=== PATIENT | female | born 1990 | race American Indian/Alaskan Native ===

== ENCOUNTER 2016-07-14 13:39 | Emergency (ER) | payer MEDICAID ==
[2016-07-14 15:13] LABS: Basophils % (Auto) 0.2 % (0.0-1.8); Eosinophils % (Auto) 0.2 % (0.0-4.3); Hematocrit 39.9 % (30.3-42.9); Hemoglobin 13.6 gm/dl (10.1-14.3); Mean Corpuscular HGB Conc 34 % (30-34); Mean Corpuscular Hemoglobin 31 pg (28-32); Mean Corpuscular Volume 91 fl (79-97); Platelet Count 211 K/mm3 (140-440); Red Blood Count 4.39 M/mm3 (3.65-5.03); Red Cell Distribution Width 12.2 % (13.2-15.2); White Blood Count 12.5 K/mm3 (4.5-11.0)
[2016-07-14 15:32] LABS: Anion Gap 20 mmol/L; BUN/Creatinine Ratio 14.28; Blood Urea Nitrogen 10 mg/dL (7-17); Carbon Dioxide 23 mmol/L (22-30); Chloride 96.9 mmol/L (98-107); Glucose 84 mg/dL (65-100); Potassium 3.7 mmol/L (3.6-5.0); Sodium 136 mmol/L (137-145)
[2016-07-14 15:50] LABS: Bilirubin,Urine NEG (Negative); Blood,Urine MOD (Negative); Ketones,Urine 80 mg/dL (Negative); Leukocyte Esterase,Urine NEG (Negative); Mucus,Urine 3+ /HPF; Nitrite,Urine NEG (Negative); WBC,Urine < 1.0 /HPF (0.0-6.0)
[2016-07-14] MEDS ORDERED: TORADOL IV ONE (16:56)
[2016-07-14] MEDS ORDERED: NORCO PO ONE (16:56)
[2016-07-14] MEDS ORDERED: NACL 0.9% 1000 ML 1,000 ML IV ONE (16:56)
--- NOTE | 2016-07-14 17:03 | Emergency Department Report ---
ED ENT HPI - General Chief complaint: Sore Throat Stated complaint: SORE THROAT, BACK PAIN Time Seen by Provider: 07/14/16 16:47 Source: patient Mode of arrival: Ambulatory Limitations: No Limitations - History of Present Illness Initial comments: PT states she thought she was coming down with a cold on Thursday. PT states her throat was a little painful and she had body aches. PT states her throat pain has increased and she has not eaten x 2 days due to the pain. PT states she was sent home from work. PT states she has not taken anything for her fever. MD complaint: sore throat Onset/Timin -: Gradual, days(s) Location: throat Severity: severe Severity scale (0 -10): 10 Quality: sharp, constant Consistency: constant Improves with: none Worsens with: swallowing, eating Associated Symptoms: fever, pain with swallowing, sore throat. denies: discharge from ear, rhinorrhea - Related Data Previous Rx's Medication Instructions Recorded Last Taken Type Acetaminophen/Codeine [Tylenol #3] 1 tab PO Q6H PRN #8 tab 07/14/16 Unknown Rx Amoxicillin/K Clav Tab [Augmentin 1 tab PO Q12HR #20 tab 07/14/16 Unknown Rx 875 mg] Ibuprofen [Motrin] 600 mg PO Q8H PRN #15 tablet 07/14/16 Unknown Rx methylPREDNISolone [Medrol] 4 mg PO DAILY #1 tab.ds.pk 07/14/16 Unknown Rx Allergies Allergy/AdvReac Type Severity Reaction Status Date / Time No Known Allergies Allergy Verified 05/25/14 18:52 ED Dental HPI - General Chief complaint: Sore Throat Stated complaint: SORE THROAT, BACK PAIN Time Seen by Provider: 07/14/16 16:47 Source: patient Mode of arrival: Ambulatory Limitations: No Limitations - Related Data Previous Rx's Medication Instructions Recorded Last Taken Type Acetaminophen/Codeine [Tylenol #3] 1 tab PO Q6H PRN #8 tab 07/14/16 Unknown Rx Amoxicillin/K Clav Tab [Augmentin 1 tab PO Q12HR #20 tab 07/14/16 Unknown Rx 875 mg] Ibuprofen [Motrin] 600 mg PO Q8H PRN #15 tablet 07/14/16 Unknown Rx methylPREDNISolone [Medrol] 4 mg PO DAILY #1 tab.ds.pk 07/14/16 Unknown Rx Allergies Allergy/AdvReac Type Severity Reaction Status Date / Time No Known Allergies Allergy Verified 05/25/14 18:52 ED Review of Systems ROS: Stated complaint: SORE THROAT, BACK PAIN Other details as noted in HPI Comment: All other systems reviewed and negative Constitutional: chills, fever, malaise, weakness ENT: throat pain. denies: ear pain, congestion Respiratory: denies: cough Gastrointestinal: abdominal pain (pt states her stomach is starting to hurt today from not eating. ). denies: nausea, vomiting Musculoskeletal: back pain, myalgia Neurological: weakness (entire body feels weak) ED Past Medical Hx - Past Medical History Hx Hypertension: No Hx CVA: No Hx Heart Attack/AMI: No Hx Congestive Heart Failure: No Hx Diabetes: No Hx Deep Vein Thrombosis: No Hx Pulmonary Embolism: No Hx GERD: No Hx Liver Disease: No Hx Renal Disease: No Hx Sickle Cell Disease: No Hx Arthritis: No Hx Headaches / Migraines: No Hx Seizures: No Hx Kidney Stones: No Hx Psychiatric Treatment: No Hx Asthma: No Hx COPD: No Hx Tuberculosis: No Hx Dementia: No Hx HIV: No - Surgical History Hx Coronary Stent: No Hx Open Heart Surgery: No Hx Pacemaker: No Hx Internal Defibrillator: No Hx Cholecystectomy: No Hx Appendectomy: No Hx Breast Surgery: No - Social History Smoking Status: Former Smoker Substance Use Type: Alcohol, Marijuana, Non Opiate Pain, Other - Medications Home Medications: Home Medications Medication Instructions Recorded Confirmed Last Taken Type Acetaminophen/Codeine [Tylenol #3] 1 tab PO Q6H PRN #8 tab 07/14/16 Unknown Rx Amoxicillin/K Clav Tab [Augmentin 1 tab PO Q12HR #20 tab 07/14/16 Unknown Rx 875 mg] Ibuprofen [Motrin] 600 mg PO Q8H PRN #15 tablet 07/14/16 Unknown Rx methylPREDNISolone [Medrol] 4 mg PO DAILY #1 tab.ds.pk 07/14/16 Unknown Rx ED Physical Exam - General Limitations: No Limitations General appearance: alert, in no apparent distress, other (non toxic ) - Head Head exam: Present: atraumatic, normocephalic, normal inspection - Eye Eye exam: Present: normal appearance, EOMI. Absent: conjunctival injection - ENT ENT exam: Present: mucous membranes moist, TM's normal bilaterally, normal external ear exam - Expanded ENT Exam Expanded Mouth exam: Absent: drooling, trismus, muffled voice, tongue normal (multiple piercings ) Throat exam: Positive: tonsillar erythema, tonsillomegaly, tonsillar exudate. Negative: R peritonsillar mass, L peritonsillar mass - Neck Neck exam: Present: normal inspection, tenderness, full ROM, lymphadenopathy - Respiratory Respiratory exam: Present: normal lung sounds bilaterally. Absent: respiratory distress, chest wall tenderness - Cardiovascular Cardiovascular Exam: Present: normal rhythm, tachycardia - GI/Abdominal GI/Abdominal exam: Present: soft. Absent: tenderness - Extremities Exam Extremities exam: Present: normal inspection, full ROM. Absent: tenderness - Back Exam Back exam: Present: normal inspection, full ROM, other (pt c/o generalized ache ). Absent: tenderness, CVA tenderness (R), CVA tenderness (L) - Neurological Exam Neurological exam: Present: alert, oriented X3 - Psychiatric Psychiatric exam: Present: normal affect, normal mood - Skin Skin exam: Present: warm, dry, intact, normal color ED Course Vital Signs 07/14/16 07/14/16 07/14/16 14:46 17:02 19:47 Temperature 100.3 F H 100.2 F H 99.3 F Pulse Rate 112 H 75 Respiratory 20 18 Rate Blood Pressure 124/78 Blood Pressure 104/67 [Left] O2 Sat by Pulse 94 99 Oximetry 07/14/16 19:48 Temperature Pulse Rate Respiratory 18 Rate Blood Pressure Blood Pressure [Left] O2 Sat by Pulse 99 Oximetry - Reevaluation(s) Reevaluation #1: 07/14/16 17:05 PT aware of available lab results. Reevaluation #2: 07/14/16 21:51 Called lab for rapid [place] test results. I was informed that lab was out of the cassettes and the test would be sent out. PT aware of available lab results. PT tolerating po fluids and food. PT states she is feeling better. PT aware of plan of care, will treat pt empirically for strep pharyngitis. - Pulse Oximetry Interpretation Digit-Finger Initial Pulse Oximetry Readin Actions Taken: none ED Medical Decision Making - Lab Data Result diagrams: 07/14/16 14:57 07/14/16 14:57 Labs 07/14/16 07/14/16 07/14/16 14:57 14:57 15:30 WBC 12.5 H RBC 4.39 Hgb 13.6 Hct 39.9 MCV 91 MCH 31 MCHC 34 RDW 12.2 L Plt Count 211 Lymph % (Auto) 8.8 L [place] % (Auto) 6.1 Eos % (Auto) 0.2 Baso % (Auto) 0.2 Lymph # 1.1 L [place] # 0.8 Eos # 0.0 Baso # 0.0 Seg Neutrophils % 84.7 H Seg Neutrophils # 10.6 H Sodium 136 L Potassium 3.7 Chloride 96.9 L Carbon Dioxide 23 Anion Gap 20 BUN 10 Creatinine 0.7 Estimated GFR > 60 BUN/Creatinine Ratio 14.28 Glucose 84 Calcium 9.0 Urine Color [place] Urine Turbidity Clear Urine pH 6.0 Ur Specific [place] 1.031 H Urine Protein 30 mg/dl Urine Glucose (UA) Neg Urine Ketones 80 Urine Blood Mod Urine Nitrite Neg Ur Reducing Substances Not Reportable Urine Bilirubin Neg Urine Ictotest Not Reportable Urine Urobilinogen 4.0 Ur Leukocyte Esterase Neg Urine WBC (Auto) < 1.0 Urine RBC (Auto) 11.0 U Epithel Cells (Auto) 5.0 Urine Mucus 3+ Urine HCG, Qual Negative - Differential Diagnosis strep pharyngitis, mono, dehydration Critical Care Time: No Critical care attestation.: If time is entered above; I have spent that time in minutes in the direct care of this critically ill patient, excluding procedure time. ED Disposition Clinical Impression: Exudative pharyngitis, Dehydration Disposition: DISCHARGED TO HOME OR SELFCARE Is pt being admited?: No Does the pt Need Aspirin: No Condition: Stable Instructions: Dehydration (ED), Mononucleosis (ED), Strep Throat (ED) Additional Instructions: Increase fluids throat culture pending. follow up with PCP in 3-5 days, your PCP can request a copy of your throat culture and mono test Return to ED if worsening or concerns Prescriptions: Acetaminophen/Codeine [Tylenol #3] 1 tab PO Q6H PRN #8 tab PRN Reason: Pain , Severe (7-10) Amoxicillin/K Clav Tab [Augmentin 875 mg] 1 tab PO Q12HR #20 tab Ibuprofen [Motrin] 600 mg PO Q8H PRN #15 tablet PRN Reason: Pain methylPREDNISolone [Medrol] 4 mg PO DAILY #1 tab.ds.pk Referrals: PRIMARY CARE, [Primary Care Provider] - 3-5 Days Forms: Work/School Release Form(ED) Time of Disposition: 22:01
[2016-07-14 19:48] VITALS: BP 104/67
[2016-07-14] MEDS ORDERED: AUGMENTIN 875 MG PO ONE (22:02)
== END 2016-07-14 22:13 | disposition home or self-care (01) ==
LOC: ED 13:39
DX: J02.9 Acute pharyngitis, unspecified (principal); E86.0 Dehydration; F12.90 Cannabis use, unspecified, uncomplicated; Z87.891 Personal history of nicotine dependence
CPT/HCPCS: 36415; 80048; 81001; 81025; 85025; 86308; 87116; 87430; 96361; 96374; 99283; J1885; J7030

== ENCOUNTER 2016-11-15 10:15 | Emergency (ER) | payer SELFPAY ==
[2016-11-15 11:51] LABS: Hematocrit 41.7 % (30.3-42.9); Hemoglobin 14.1 gm/dl (10.1-14.3); Mean Corpuscular HGB Conc 34 % (30-34); Mean Corpuscular Hemoglobin 31 pg (28-32); Mean Corpuscular Volume 92 fl (79-97); Platelet Count 241 K/mm3 (140-440); Red Blood Count 4.51 M/mm3 (3.65-5.03); Red Cell Distribution Width 12.8 % (13.2-15.2); White Blood Count 4.4 K/mm3 (4.5-11.0)
[2016-11-15 13:19] LABS: Alanine Aminotransferase 12 units/L (7-56); Albumin 4.2 g/dL (3.9-5); Albumin/Globulin Ratio 1.4 %; Alkaline Phosphatase 53 units/L (35-129); Anion Gap 20 mmol/L; Blood Urea Nitrogen 8 mg/dL (7-17); Calcium 9.3 mg/dL (8.4-10.2); Carbon Dioxide 22 mmol/L (22-30); Chloride 101.9 mmol/L (98-107); Glucose 80 mg/dL (65-100); Potassium 4.7 mmol/L (3.6-5.0); Sodium 139 mmol/L (137-145); Total Protein 7.3 g/dL (6.3-8.2)
--- NOTE | 2016-11-15 14:52 | Ultrasound Report ---
FINAL REPORT EXAM: US OB TRANSVAGINAL HISTORY: bleeding TECHNIQUE: Pelvic obstetrical ultrasound. Transvaginal study. This is read in conjunction with transabdominal images performed concurrently PRIORS: 11/15/2016 FINDINGS: There is no intrauterine gestational sac seen. There is no uterine mass is seen. The uterus measures 8.2 x 4.4 x 6.1 cm. The endometrium measures 9.4 mm thickness. Endometrial contents are slightly heterogeneous. The right ovary measures 2.4 x 1.4 x 3.2 cm. The left ovary measures 2.8 x 1.5 x 2.1 cm. There are no abnormal adnexal masses seen. There is blood flow within both ovaries. There is no free fluid in the cul-de-sac. IMPRESSION: Mildly heterogeneous endometrium measuring 9.4 mm thickness. No intrauterine gestational sac seen. There is no adnexal mass or free fluid. Most likely findings reflect spontaneous . Very early nonvisualized IUP and ectopic are possible but considered less likely. Correlate clinically.
--- NOTE | 2016-11-15 14:54 | Ultrasound Report ---
FINAL REPORT EXAM: US OB \T\lt; = 14 WEEKS FETUS HISTORY: bleeding TECHNIQUE: Pelvic obstetrical ultrasound. Transabdominal study. This is read in conjunction with transvaginal images performed concurrently PRIORS: 11/15/2016 FINDINGS: There is no intrauterine gestational sac seen. There is no uterine mass is seen. The uterus measures 8.2 x 4.4 x 6.1 cm. The endometrium measures 9.4 mm thickness. Endometrial contents are slightly heterogeneous. The right ovary measures 2.4 x 1.4 x 3.2 cm. The left ovary measures 2.8 x 1.5 x 2.1 cm. There are no abnormal adnexal masses seen. There is blood flow within both ovaries. There is no free fluid in the cul-de-sac. IMPRESSION: Mildly heterogeneous endometrium measuring 9.4 mm thickness. No intrauterine gestational sac seen. There is no adnexal mass or free fluid. Most likely findings reflect spontaneous . Very early nonvisualized IUP and ectopic are possible but considered less likely. Correlate clinically.
--- NOTE | 2016-11-15 20:08 | Emergency Department Report ---
HPI - General Chief Complaint: Abdominal Pain Time Seen by Provider: 11/15/16 17:27 - HPI HPI: This is a 26-year-old [place] female who presents to the emergency department with complaint of some lower back pain and vaginal bleeding since last night while . The patient had a positive home test recently and her last menstrual cycle was October 09. With this she would be with one previous . She has not seen blood cycle [facility] for this current but that is who she usually follows with. She denies any fever, nausea, vomiting, dysuria, vaginal discharge. She has not taken anything for symptoms prior to presentation. She denies any other past medical history. No recent travel or sick contacts at home. ED Past Medical Hx - Past Medical History Hx Hypertension: No Hx CVA: No Hx Heart Attack/AMI: No Hx Congestive Heart Failure: No Hx Diabetes: No Hx Deep Vein Thrombosis: No Hx Pulmonary Embolism: No Hx GERD: No Hx Liver Disease: No Hx Renal Disease: No Hx Sickle Cell Disease: No Hx Arthritis: No Hx Headaches / Migraines: No Hx Seizures: No Hx Kidney Stones: No Hx Psychiatric Treatment: No Hx Asthma: No Hx COPD: No Hx Tuberculosis: No Hx Dementia: No Hx HIV: No - Surgical History Hx Coronary Stent: No Hx Open Heart Surgery: No Hx Pacemaker: No Hx Internal Defibrillator: No Hx Cholecystectomy: No Hx Appendectomy: No Hx Breast Surgery: No - Social History Smoking Status: Former Smoker Substance Use Type: None - Medications Home Medications: Home Medications Medication Instructions Recorded Confirmed Last Taken Type Acetaminophen/Codeine [Tylenol #3] 1 tab PO Q6H PRN #8 tab 07/14/16 Unknown Rx Amoxicillin/K Clav Tab [Augmentin 1 tab PO Q12HR #20 tab 07/14/16 Unknown Rx 875 mg] Ibuprofen [Motrin] 600 mg PO Q8H PRN #15 tablet 07/14/16 Unknown Rx methylPREDNISolone [Medrol] 4 mg PO DAILY #1 tab.ds.pk 07/14/16 Unknown Rx Vit-Fe Fumar-FA [ 1 tab PO QDAY #30 tablet 11/15/16 Unknown Rx Vitamin] ED Review of Systems ROS: Stated complaint: 6WK /BLEEDING/ Other details as noted in HPI Comment: All other systems reviewed and negative Constitutional: denies: chills, fever Eyes: denies: eye pain, eye discharge, vision change ENT: denies: ear pain, throat pain Respiratory: denies: cough, shortness of breath, wheezing Cardiovascular: denies: chest pain, palpitations Gastrointestinal: abdominal pain. denies: nausea, vomiting Genitourinary: other (vaginal bleeding). denies: dysuria, discharge Musculoskeletal: denies: back pain, joint swelling, arthralgia Skin: denies: rash, lesions Neurological: denies: headache, weakness, paresthesias Physical Exam - Physical Exam Vital Signs: Vital Signs 11/15/16 11/15/16 10:47 19:30 Temperature 98.6 F 98.3 F Pulse Rate 93 H 80 Respiratory 16 18 Rate Blood Pressure 122/84 123/74 O2 Sat by Pulse 97 100 Oximetry Physical Exam: GENERAL: The patient is well-developed well-nourished. HENT: Normocephalic. Atraumatic. Patient has moist mucous membranes. EYES: Extraocular motions are intact. Pupils equal reactive to light bilaterally. NECK: Supple. Trachea is midline. CHEST/LUNGS: Clear to auscultation. There is no respiratory distress noted. HEART/CARDIOVASCULAR: Regular. There is no tachycardia. There is no gallop rub or murmur. ABDOMEN: Abdomen is soft, nontender. No guarding or rebound tenderness. No palpable gravid uterus. Patient has normal bowel sounds. There is no abdominal distention. SKIN: Skin is warm and dry. NEURO: The patient is awake, alert, and oriented. The patient is cooperative. The patient has no focal neurologic deficits. The patient has normal speech and gait. MUSCULOSKELETAL: There is no tenderness or deformity. There is no limitation range of motion. There is no evidence of acute injury. ED Course Vital Signs 11/15/16 11/15/16 10:47 19:30 Temperature 98.6 F 98.3 F Pulse Rate 93 H 80 Respiratory 16 18 Rate Blood Pressure 122/84 123/74 O2 Sat by Pulse 97 100 Oximetry ED Medical Decision Making - Lab Data Result diagrams: 11/15/16 11:18 11/15/16 12:17 - Radiology Data Radiology results: report reviewed EXAM: US OB TRANSVAGINAL HISTORY: bleeding TECHNIQUE: Pelvic obstetrical ultrasound. Transvaginal study. This is read in conjunction with transabdominal images performed concurrently PRIORS: 11/15/2016 FINDINGS: There is no intrauterine gestational sac seen. There is no uterine mass is seen. The uterus measures 8.2 x 4.4 x 6.1 cm. The endometrium measures 9.4 mm thickness. Endometrial contents are slightly heterogeneous. The right ovary measures 2.4 x 1.4 x 3.2 cm. The left ovary measures 2.8 x 1.5 x 2.1 cm. There are no abnormal adnexal masses seen. There is blood flow within both ovaries. There is no free fluid in the cul-de-sac. IMPRESSION: Mildly heterogeneous endometrium measuring 9.4 mm thickness. No intrauterine gestational sac seen. There is no adnexal mass or free fluid. Most likely findings reflect spontaneous . Very early nonvisualized IUP and ectopic are possible but considered less likely. Correlate clinically. Transcribed By: LEÓN Dictated By: MARGIE PAULSON MD Electronically Authenticated By: MARGIE PAULSON MD Signed Date/Time: 11/15/16 1051 - Medical Decision Making This is a 26-year-old female presents to the emergency department with some lower back pain and vaginal bleeding while . Her beta hCG is about 155. An ultrasound was done anyways and it shows a thickened endometrium but no obvious signs of intrauterine or any signs of ectopic . It is most likely a spontaneous miscarriage but early and/or ectopic cannot be ruled out 100%. The rest the patient's labs are unremarkable. The patient did not want to wait any further to have a urinalysis done so it is unknown whether her low back pain or any of her symptoms could be related to a UTI and the patient understands that without checking this that I cannot place her on antibiotics and a UTI with an is something that needs treatment. I discussed with the patient great detail about the diagnosis of threatened miscarriage and the plan for follow-up in 3-5 days either with her OB /[facility] or back in the emergency department for a repeat hormone level and possibly ultrasound. She understands that if the hormone level is increasing that there is still possibly a chance for this to be a early or possibly an early ectopic. She also appears to understand that if the hormone level is decreasing at that time that it will confirm that this is in fact a spontaneous miscarriage. However since we are not 100% definitive, she will be treated with vitamins and has been encouraged to take only Tylenol for discomfort until follow-up. She will return sooner with any worsening of vaginal bleeding, abdominal pain, development of fever or any acute distress. - Differential Diagnosis , threatened miscarriage, spontaneous miscarriage, ectopic, UTI Critical Care Time: No Critical care attestation.: If time is entered above; I have spent that time in minutes in the direct care of this critically ill patient, excluding procedure time. ED Disposition Clinical Impression: Threatened miscarriage, Vaginal bleeding Qualifiers: Weeks of gestation: less than 8 weeks Qualified Code(s): Z3A.01 - Less than 8 weeks gestation of Disposition: DC-01 TO HOME OR SELFCARE Is pt being admited?: No Condition: Stable Instructions: Threatened Miscarriage (ED), (ED) Additional Instructions: Please follow-up with your IMPORT EXPORT AGENT in 3-4 days or return to the emergency department. You will need a repeat hormone level and potentially a repeat ultrasound. If the hormone level is increasing, it is possible that this is a early . If the hormone level is decreasing, then this is most likely a spontaneous miscarriage. For now we will treat you as if you are with a viable intrauterine . I will start you on vitamins. You can take Tylenol every 4 hours, using lipase dosing, as needed for any discomfort. Otherwise do not take any other meds not prescribed by a physician. Return to the emergency department sooner with any worsening of your symptoms or any acute distress. Prescriptions: Vit-Fe Fumar-FA [ Vitamin] 1 tab PO QDAY #30 tablet Referrals: [facility] [Provider Group] - 3-5 Days Time of Disposition: 20:25
[2016-11-15 20:32] VITALS: BP 114/87
== END 2016-11-15 20:30 | disposition home or self-care (01) ==
LOC: ED 10:15
DX: O20.0 Threatened abortion (principal); O99.331 Smoking (tobacco) complicating pregnancy, first trimester; Z3A.01 Less than 8 weeks gestation of pregnancy
CPT/HCPCS: 36415; 76801; 76817; 80053; 84702; 84703; 85027; 86850; 86900; 86901

== ENCOUNTER 2016-11-19 18:38 | Emergency (ER) | payer SELFPAY ==
[2016-11-19 23:44] LABS: Basophils % (Auto) 0.9 % (0.0-1.8); Eosinophils % (Auto) 4.4 % (0.0-4.3); Hematocrit 40.3 % (30.3-42.9); Hemoglobin 13.7 gm/dl (10.1-14.3); Mean Corpuscular HGB Conc 34 % (30-34); Mean Corpuscular Hemoglobin 32 pg (28-32); Mean Corpuscular Volume 93 fl (79-97); Platelet Count 261 K/mm3 (140-440); Red Blood Count 4.36 M/mm3 (3.65-5.03); Red Cell Distribution Width 12.8 % (13.2-15.2); White Blood Count 6.5 K/mm3 (4.5-11.0)
[2016-11-19 23:57] VITALS: BP 129/69
--- NOTE | 2016-11-20 02:19 | Emergency Department Report ---
ED Recheck HPI - General Chief Complaint: Recheck/Abnormal Lab/Rx Stated Complaint: NEEDS REPEAT OF TEST,REPEAT ULTRA SOUND Time Seen by Provider: 11/20/16 02:05 Source: patient Mode of arrival: Ambulatory Limitations: No Limitations - History of Present Illness Initial Comments: This is a 26-year-old female nontoxic, well nourished in appearance, no acute signs of distress presents to the ED for follow-up of a quantitative Prevacid test. She states she was here on 11/16/1911/26/2016 and was diagnosed with a possible miscarriage/threatened and was instructed to return to repeat quantitative hCG. Patient currently denies any vaginal bleeding, abdominal pain , back pain, nausea, vomiting, chest pain or shortness of breath. Patient stated her last vaginal bleeding occurred 2 days ago. Patient denies any allergies or past medical history. MD Complaint: abnormal lab -: Gradual Initial Visit For: other (threatened ) Returns Today for: other (recheck quantitative hCG) Symptoms Since Prior Visit: no new symptoms Context: planned re-check Associated Symptoms: none. denies: fever, chills, chest pain, shortness of breath, rash, malaise, nasuea, abdominal pain - Related Data Previous Rx's Medication Instructions Recorded Last Taken Type Acetaminophen/Codeine [Tylenol #3] 1 tab PO Q6H PRN #8 tab 07/14/16 Unknown Rx Amoxicillin/K Clav Tab [Augmentin 1 tab PO Q12HR #20 tab 07/14/16 Unknown Rx 875 mg] Ibuprofen [Motrin] 600 mg PO Q8H PRN #15 tablet 07/14/16 Unknown Rx methylPREDNISolone [Medrol] 4 mg PO DAILY #1 tab.ds.pk 07/14/16 Unknown Rx Vit-Fe Fumar-FA [ 1 tab PO QDAY #30 tablet 11/15/16 Unknown Rx Vitamin] Allergies Allergy/AdvReac Type Severity Reaction Status Date / Time No Known Allergies Allergy Verified 05/25/14 18:52 ED Review of Systems ROS: Stated complaint: NEEDS REPEAT OF TEST,REPEAT ULTRA SOUND Other details as noted in HPI Constitutional: denies: chills, fever Eyes: denies: eye pain, eye discharge, vision change ENT: denies: ear pain, throat pain Respiratory: denies: cough, shortness of breath, wheezing Cardiovascular: denies: chest pain, palpitations Endocrine: no symptoms reported Gastrointestinal: denies: abdominal pain, nausea, diarrhea Genitourinary: denies: urgency, dysuria, discharge Musculoskeletal: denies: back pain, joint swelling, arthralgia Skin: denies: rash, lesions Neurological: denies: headache, weakness, paresthesias Psychiatric: denies: anxiety, depression Hematological/Lymphatic: denies: easy bleeding, easy bruising ED Past Medical Hx - Past Medical History Hx Hypertension: No Hx CVA: No Hx Heart Attack/AMI: No Hx Congestive Heart Failure: No Hx Diabetes: No Hx Deep Vein Thrombosis: No Hx Pulmonary Embolism: No Hx GERD: No Hx Liver Disease: No Hx Renal Disease: No Hx Sickle Cell Disease: No Hx Arthritis: No Hx Headaches / Migraines: No Hx Seizures: No Hx Kidney Stones: No Hx Psychiatric Treatment: No Hx Asthma: No Hx COPD: No Hx Tuberculosis: No Hx Dementia: No Hx HIV: No - Surgical History Hx Coronary Stent: No Hx Open Heart Surgery: No Hx Pacemaker: No Hx Internal Defibrillator: No Hx Cholecystectomy: No Hx Appendectomy: No Hx Breast Surgery: No - Social History Smoking Status: Never Smoker Substance Use Type: None - Medications Home Medications: Home Medications Medication Instructions Recorded Confirmed Last Taken Type Acetaminophen/Codeine [Tylenol #3] 1 tab PO Q6H PRN #8 tab 07/14/16 Unknown Rx Amoxicillin/K Clav Tab [Augmentin 1 tab PO Q12HR #20 tab 07/14/16 Unknown Rx 875 mg] Ibuprofen [Motrin] 600 mg PO Q8H PRN #15 tablet 07/14/16 Unknown Rx methylPREDNISolone [Medrol] 4 mg PO DAILY #1 tab.ds.pk 07/14/16 Unknown Rx Vit-Fe Fumar-FA [ 1 tab PO QDAY #30 tablet 11/15/16 Unknown Rx Vitamin] ED Physical Exam - General Limitations: No Limitations General appearance: alert, in no apparent distress - Head Head exam: Present: atraumatic, normocephalic - Eye Eye exam: Present: normal appearance, PERRL, EOMI. Absent: scleral icterus, conjunctival injection, nystagmus, periorbital swelling, periorbital tenderness Pupils: Present: normal accommodation - ENT ENT exam: Present: normal exam, normal orophraynx, mucous membranes moist, TM's normal bilaterally, normal external ear exam - Neck Neck exam: Present: normal inspection, full ROM. Absent: tenderness, meningismus, lymphadenopathy, thyromegaly - Respiratory Respiratory exam: Present: normal lung sounds bilaterally. Absent: respiratory distress, wheezes, rales, rhonchi, stridor, chest wall tenderness, accessory muscle use, decreased breath sounds, prolonged expiratory - Cardiovascular Cardiovascular Exam: Present: regular rate, normal rhythm, normal heart sounds. Absent: bradycardia, tachycardia, irregular rhythm, systolic murmur, diastolic murmur, rubs, gallop - GI/Abdominal GI/Abdominal exam: Present: soft, normal bowel sounds. Absent: distended, tenderness, guarding, rebound, rigid, diminished bowel sounds - Rectal Rectal exam: Present: deferred - Extremities Exam Extremities exam: Present: normal inspection, full ROM, normal capillary refill. Absent: tenderness, pedal edema, joint swelling, calf tenderness - Back Exam Back exam: Present: normal inspection, full ROM. Absent: tenderness, CVA tenderness (R), CVA tenderness (L), muscle spasm, paraspinal tenderness, vertebral tenderness, rash noted - Neurological Exam Neurological exam: Present: alert, oriented X3, CN II-XII intact, normal gait, reflexes normal - Psychiatric Psychiatric exam: Present: normal affect, normal mood - Skin Skin exam: Present: warm, dry, intact, normal color. Absent: rash ED Course Vital Signs 11/19/16 18:46 Temperature 98.5 F Pulse Rate 83 Respiratory 18 Rate Blood Pressure 129/69 O2 Sat by Pulse 99 Oximetry - Reevaluation(s) Reevaluation #1: 11/20/16 02:19 patient speaking in full sentences with no signs of distress. - Consultations Consultation #1: 11/20/16 02:19 Karsten Galeas has been consulted about patient history, physical exam, and labs and agrees for d.c with follow-up with OB. No ultrasound today. Critical care attestation.: If time is entered above; I have spent that time in minutes in the direct care of this critically ill patient, excluding procedure time. ED Disposition Clinical Impression: Threatened Disposition: DC-01 TO HOME OR SELFCARE Is pt being admited?: No Does the pt Need Aspirin: No Condition: Stable Instructions: Threatened Miscarriage (ED) Additional Instructions: Follow-up with a PROFESSIONAL SERVICES MANAGER in 3-5 days or symptoms such as vaginal bleeding, abdominal/pelvic pain, or any abnormal symptoms return to emergency room as soon as possible Today's urine hCG quantitative is 19.58 and has decreased from previous visit. Referrals: PRIMARY CARE, [Primary Care Provider] - 3-5 Days MARGIE FAJARDO MD [Staff Physician] - 3-5 Days [facility] [Outside] - 3-5 Days [facility] [Outside] - 3-5 Days Forms: Work/School Release Form(ED)
== END 2016-11-20 03:00 | disposition home or self-care (01) ==
LOC: ED 18:38
DX: O20.0 Threatened abortion (principal); Z3A.00 Weeks of gestation of pregnancy not specified
CPT/HCPCS: 36415; 84702; 85025; 86850; 86900; 86901; 99284

== ENCOUNTER 2017-09-26 14:38 | Emergency (ER) | payer OTHER ==
--- NOTE | 2017-09-26 17:16 | Emergency Department Report ---
Minor Respiratory - HPI Chief Complaint: Headache Stated Complaint: headache, face swelling Time Seen by Provider: 09/26/17 16:27 Duration: greater than 1 week Pain Location: Ear (left ear pain), Other (headache ,left and left facial pain) Severity: severe (10/10) Minor Respiratory: Yes Rhinorrhea (nasal congestion and runny nose), Yes Able to Tolerate Fluids, Yes Ear Pain (left ear pain), Yes Cough (occasional dry cough worse at night), No Sore Throat, No Sick Contacts, No Hemoptysis, No Chest Pain, No Shortness of Breath, No Fever Other History: This is a 26-year-old female here report that she has headache to the left side of her head frontally, left earache and left facial pain. She is appropriate in his congestion and runny nose. She states that she recently stopped smoking so she does not if it's related. She denies any fever or chills. Denies any nausea or vomiting. She reports occasional cough and it's worse at night. Denies any abdominal or back pain. Denies any shortness of breath or chest pain. Denies sore throat or drooling. She said left side upper back teeth is also hurting. Pain feels like pressure to her head face and ear. Denies any trauma to her ear. Denies any bleeding or drainage from air. She took xaoy-raf-lnurtpt sinus medication but she said is not helping. No alleviating or exacerbating factors. ED Review of Systems ROS: Stated complaint: headache, face swelling Other details as noted in HPI Constitutional: denies: chills, fever Eyes: denies: eye pain, eye discharge, vision change ENT: ear pain, dental pain, congestion. denies: throat pain, hearing loss, epistaxis Respiratory: cough. denies: shortness of breath, SOB with exertion, SOB at rest , stridor, wheezing Cardiovascular: denies: chest pain, palpitations, edema, syncope Gastrointestinal: denies: abdominal pain, nausea, vomiting, diarrhea Genitourinary: denies: urgency, dysuria, discharge Musculoskeletal: denies: back pain, joint swelling, arthralgia, myalgia Skin: denies: rash, lesions Neurological: headache, vertigo. denies: weakness, numbness, paresthesias, confusion, abnormal gait ED Past Medical Hx - Past Medical History Previous Medical History?: Yes Hx Hypertension: No Hx CVA: No Hx Heart Attack/AMI: No Hx Congestive Heart Failure: No Hx Diabetes: No Hx Deep Vein Thrombosis: No Hx Pulmonary Embolism: No Hx GERD: No Hx Liver Disease: No Hx Renal Disease: No Hx Sickle Cell Disease: No Hx Arthritis: No Hx Headaches / Migraines: No Hx Seizures: No Hx Kidney Stones: No Hx Psychiatric Treatment: No Hx Asthma: No Hx COPD: No Hx Tuberculosis: No Hx Dementia: No Hx HIV: No Additional medical history: sinus problems - Surgical History Past Surgical History?: No Hx Coronary Stent: No Hx Open Heart Surgery: No Hx Pacemaker: No Hx Internal Defibrillator: No Hx Cholecystectomy: No Hx Appendectomy: No Hx Breast Surgery: No - Family History Family history: hypertension - Social History Smoking Status: Former Smoker Substance Use Type: Alcohol, Non Opiate Pain - Medications Home Medications: Home Medications Medication Instructions Recorded Confirmed Last Taken Type Acetaminophen/Codeine [Tylenol #3] 1 tab PO Q6H PRN #8 tab 07/14/16 Unknown Rx methylPREDNISolone [Medrol] 4 mg PO DAILY #1 tab.ds.pk 07/14/16 Unknown Rx Vit-Fe Fumar-FA [ 1 tab PO QDAY #30 tablet 11/15/16 Unknown Rx Vitamin] Amoxicillin/K Clav Tab [Augmentin 1 tab PO Q12HR #20 tab 09/26/17 Unknown Rx 875MG TAB] Cetirizine HCl [ZyrTEC] 10 mg PO QAM 14 Days #14 capsule 09/26/17 Unknown Rx Fluticasone [Flonase] 1 spray NS QDAY 14 Days #1 bottle 09/26/17 Unknown Rx Ibuprofen [Motrin 600 MG tab] 600 mg PO Q8H PRN #15 tablet 09/26/17 Unknown Rx Neomy/Polymyx B/Hc (Otic) Soln 4 drops .ROUTE Q8H 7 Days #1 bottle 09/26/17 Unknown Rx [Cortisporin (Otic) Soln] Minor Respiratory Exam - Exam General: Vital signs noted. No distress. Alert and acting appropriately. This is a 26-year-old female well-nourished well-developed in no acute distress. HEENT: Yes Moist Mucous Membranes (uvula midline and oral airways patent), Yes Rhinorrhea (congestion, erythema with clear drainage), Yes Frontal Tenderness ( bilateral frontal sinus tenderness), No Pharyngeal Erythema, No Pharyngeal Exudates, No Conjuctival Injection, No Maxillary Tenderness Ear: Left EAC Pain (left EAC red swollen and left tried to stand up palpate without any drainage or bleeding.), Neither TM Bulge (bilateral TM congested without erythema), Neither TM Erythema, Neither EAC Discharge Neck: Yes Supple (full range of motion with no C-spine tenderness), No Adenopathy Lungs: Yes Good Air Exchange (CTAB), No Wheezes, No Ronchi, No Stridor, No Cough , No Labored Respirations, No Retractions, No Use of Accessory Muscles, No Other Abnormal Lung Sounds Heart: Yes Regular (S1S2), No Murmur Abdomen: Yes Normal Bowel Sounds, No Tenderness (NTTP in al quadrants), No Peritoneal Signs Skin: No Rash, No Edema Neurologic: Alert and oriented 3, GCS 15, no facial droop. Speech is clear. Normal gait and normal reflexes Musculoskeletal: Unremarkable. EXT/MSK: no clubbing cyanosis or edema. +2 pulses to extremities and no neurovascular compromise. Patient with +5 strength in all extremities. She has full range of motion to all her extremities. ED Course Vital Signs 09/26/17 14:43 Temperature 98.6 F Pulse Rate 80 Respiratory 20 Rate Blood Pressure 105/66 O2 Sat by Pulse 100 Oximetry - Reevaluation(s) Reevaluation #1: 09/26/17 18:24 Patient received Decadron 10 mg I am emergency room without any adverse reaction. ED Medical Decision Making - Medical Decision Making This is a 26-year-old female here complaining of left frontal headache, left facial pain and left Upper tooth, left earache, occasional coughing and has been using abgk-vdm-koeetme sinus medication for over a week without any relief. She said this is been getting worse over the last 3 days. Patient was seen and examined by myself and found to have tender frontal sinuses , oral mucosa normal findings without any abnormality in teeth, neck is supple without any abnormalities.. Bilateral TM congested without erythema and left EAC with redness and swelling without any drainage with tender to palpate left tragus. Her nasal mucosa is red, swollen and congested with clear drainage. Patient with acute sinusitis and left otitis externa with left ear pain. She was given Decadron 10 mg IM in emergency room. I discussed diagnosis and treatment plan the patient and she is in agreement. Assessment/plan External left ear-she will be discharged on Cortisporin optic Otalgia left ear-will be discharged home in Motrin Acute sinusitis-patient given Decadron 10 mg IM and will be discharged home on Flonase, Zyrtec and Augmentin. Headache-resolved Condition discharged home in stable condition, vital signs are stable she is afebrile. Discharged home with prescription for Motrin, Flonase, Zyrtec and Augmentin and she was instructed to follow up with her primary care physician which she does have one in 3-5 days. She voiced understanding. - Differential Diagnosis OM, OE, URI with cough& congestion, sinusitis, headache unspec, rhinitis Critical care attestation.: If time is entered above; I have spent that time in minutes in the direct care of this critically ill patient, excluding procedure time. ED Disposition Clinical Impression: Otalgia, left ear Otitis externa, left Qualifiers: Otitis externa type: unspecified type Chronicity: acute Qualified Code(s): H60.502 - Unspecified acute noninfective otitis externa, left ear Sinusitis, acute Qualifiers: Sinusitis location: unspecified location Recurrence: not specified as recurrent Qualified Code(s): J01.90 - Acute sinusitis, unspecified Headache Qualifiers: Headache type: unspecified Headache chronicity pattern: episodic headache Intractability: not intractable Qualified Code(s): R51 - Headache Disposition: DC-01 TO HOME OR SELFCARE Is pt being admited?: No Does the pt Need Aspirin: No Condition: Stable Instructions: Sinusitis (ED), Acute Headache (ED), Earache (ED), Otitis Externa (ED) Additional Instructions: Please take antibiotic as prescribed Follow-up with primary care physician in 3 days If your condition worsens to include difficulty breathing, swallowing, chest pain, nausea and vomiting and fever, please return to the emergency room [facility]. Take Zyrtec and Flonase to relieve congestion Increasing fluid intake Take Motrin as prescribed for earache and headache but isn't taken into sockets medication can cause irritation to stomach lining Use nasal saline wash to flush and nostrils. Prescriptions: Amoxicillin/K Clav Tab [Augmentin 875MG TAB] 1 tab PO Q12HR #20 tab Cetirizine HCl [ZyrTEC] 10 mg PO QAM 14 Days #14 capsule Fluticasone [Flonase] 1 spray NS QDAY 14 Days #1 bottle Ibuprofen [Motrin 600 MG tab] 600 mg PO Q8H PRN #15 tablet PRN Reason: Pain Neomy/Polymyx B/Hc (Otic) Soln [Cortisporin (Otic) Soln] 4 drops .ROUTE Q8H 7 Days #1 bottle Referrals: PRIMARY CARE, [Primary Care Provider] - 2-3 Days [facility] [Outside] - 2-3 Days Forms: Work/School Release Form(ED)
[2017-09-26] MEDS ORDERED: DECADRON IM STA (17:18)
[2017-09-26 18:05] VITALS: BP 140/82
== END 2017-09-26 18:04 | disposition home or self-care (01) ==
LOC: ED 14:38
DX: H60.502 Unspecified acute noninfective otitis externa, left ear (principal); J01.90 Acute sinusitis, unspecified; Z87.891 Personal history of nicotine dependence
CPT/HCPCS: 96372; 99282; J1100

== ENCOUNTER 2017-10-26 04:00 | Emergency (ER) | payer SELFPAY ==
[2017-10-26 04:06] VITALS: BP 112/70
[2017-10-26 06:06] LABS: Bacteria,Urine 2+ /HPF (Negative); Bilirubin,Urine NEG (Negative); Blood,Urine LG (Negative); Color,Urine Amber (Yellow); Mucus,Urine FEW /HPF
[2017-10-26 06:11] LABS: HCG Qualitative,Urine Negative (Negative)
[2017-10-26] MEDS ORDERED: MOTRIN PO ONE (06:29)
--- NOTE | 2017-10-26 06:30 | Emergency Department Report ---
ED Female HPI - General Chief complaint: Urogenital-Female Stated complaint: VAGINAL/ABD PAIN Time Seen by Provider: 10/26/17 06:25 Source: patient Mode of arrival: Ambulatory Limitations: No Limitations - History of Present Illness Initial comments: 27-year-old -[place] female presents to the emergency room for lower abdominal pain reports 1010 times one day. Patient reports to me that she had a urinary tract infection 2 weeks ago and took Azo. Patient reports that she's been having burning with urination discomfort in her lower abdominal area urinary urgency and frequency. Patient reports that she took Azo pills and cranberry pills and now feels worse. MD Complaint: dysuria -: week(s) (2) Location: suprapubic Severity scale (0 -10): 10 Quality: sharp, dull Consistency: intermittent Worsens with: urination Are you Now?: No Last Menstrual Period: 10/26/17 EDC: 08/02/18 Associated Symptoms: dysuria. denies: nausea/vomiting, fever/chills - Related Data Sexually active: No Previous Rx's Medication Instructions Recorded Last Taken Type Acetaminophen/Codeine [Tylenol #3] 1 tab PO Q6H PRN #8 tab 07/14/16 Unknown Rx methylPREDNISolone [Medrol] 4 mg PO DAILY #1 tab.ds.pk 07/14/16 Unknown Rx Vit-Fe Fumar-FA [ 1 tab PO QDAY #30 tablet 11/15/16 Unknown Rx Vitamin] Amoxicillin/K Clav Tab [Augmentin 1 tab PO Q12HR #20 tab 09/26/17 Unknown Rx 875MG TAB] Cetirizine HCl [ZyrTEC] 10 mg PO QAM 14 Days #14 capsule 09/26/17 Unknown Rx Fluticasone [Flonase] 1 spray NS QDAY 14 Days #1 bottle 09/26/17 Unknown Rx Ibuprofen [Motrin 600 MG tab] 600 mg PO Q8H PRN #15 tablet 09/26/17 Unknown Rx Neomy/Polymyx B/Hc (Otic) Soln 4 drops .ROUTE Q8H 7 Days #1 bottle 09/26/17 Unknown Rx [Cortisporin (Otic) Soln] Nitrofurantoin Monohyd/M-Cryst 100 mg PO BID #14 capsule 10/26/17 Unknown Rx [Macrobid 100 mg Capsule] Allergies Allergy/AdvReac Type Severity Reaction Status Date / Time No Known Allergies Allergy Verified 05/25/14 18:52 ED Review of Systems ROS: Stated complaint: VAGINAL/ABD PAIN Other details as noted in HPI Constitutional: denies: chills, fever Eyes: denies: eye pain, eye discharge, vision change ENT: denies: ear pain, throat pain Respiratory: denies: cough, shortness of breath, wheezing Genitourinary: urgency, dysuria, frequency Musculoskeletal: denies: back pain ED Past Medical Hx - Past Medical History Previous Medical History?: No Hx Hypertension: No Hx CVA: No Hx Heart Attack/AMI: No Hx Congestive Heart Failure: No Hx Diabetes: No Hx Deep Vein Thrombosis: No Hx Pulmonary Embolism: No Hx GERD: No Hx Liver Disease: No Hx Renal Disease: No Hx Sickle Cell Disease: No Hx Arthritis: No Hx Headaches / Migraines: No Hx Seizures: No Hx Kidney Stones: No Hx Psychiatric Treatment: No Hx Asthma: No Hx COPD: No Hx Tuberculosis: No Hx Dementia: No Hx HIV: No Additional medical history: sinus problems - Surgical History Past Surgical History?: No Hx Coronary Stent: No Hx Open Heart Surgery: No Hx Pacemaker: No Hx Internal Defibrillator: No Hx Cholecystectomy: No Hx Appendectomy: No Hx Breast Surgery: No - Social History Smoking Status: Never Smoker - Medications Home Medications: Home Medications Medication Instructions Recorded Confirmed Last Taken Type Acetaminophen/Codeine [Tylenol #3] 1 tab PO Q6H PRN #8 tab 07/14/16 Unknown Rx methylPREDNISolone [Medrol] 4 mg PO DAILY #1 tab.ds.pk 07/14/16 Unknown Rx Vit-Fe Fumar-FA [ 1 tab PO QDAY #30 tablet 11/15/16 Unknown Rx Vitamin] Amoxicillin/K Clav Tab [Augmentin 1 tab PO Q12HR #20 tab 09/26/17 Unknown Rx 875MG TAB] Cetirizine HCl [ZyrTEC] 10 mg PO QAM 14 Days #14 capsule 09/26/17 Unknown Rx Fluticasone [Flonase] 1 spray NS QDAY 14 Days #1 bottle 09/26/17 Unknown Rx Ibuprofen [Motrin 600 MG tab] 600 mg PO Q8H PRN #15 tablet 09/26/17 Unknown Rx Neomy/Polymyx B/Hc (Otic) Soln 4 drops .ROUTE Q8H 7 Days #1 bottle 09/26/17 Unknown Rx [Cortisporin (Otic) Soln] Nitrofurantoin Monohyd/M-Cryst 100 mg PO BID #14 capsule 10/26/17 Unknown Rx [Macrobid 100 mg Capsule] ED Physical Exam - General Limitations: No Limitations General appearance: alert, in no apparent distress - ENT ENT exam: Present: mucous membranes moist - GI/Abdominal GI/Abdominal exam: Present: soft, tenderness (suprapubic). Absent: distended, guarding, rebound - Back Exam Back exam: Present: normal inspection - Neurological Exam Neurological exam: Present: alert, oriented X3 - Psychiatric Psychiatric exam: Present: normal affect, normal mood - Skin Skin exam: Present: warm, dry, intact, normal color. Absent: rash ED Course Vital Signs 10/26/17 10/26/17 03:58 05:00 Temperature 98.4 F 98.4 F Pulse Rate 88 85 Respiratory 18 18 Rate Blood Pressure 112/70 112/70 O2 Sat by Pulse 99 99 Oximetry ED Medical Decision Making - Medical Decision Making Patient has been evaluated by this provider fast track. Ibuprofen 600 mg of been ordered urinalysis shows the patient has a urinary tract infection. We'll discharge patient on Macrobid 100 mg every 12 hours 7 days. As well as Pyridium 100 mg by mouth 3 times a day when necessary for 3 days. Patient can take [id number]-drdmvyw ibuprofen as needed for pain. Critical care attestation.: If time is entered above; I have spent that time in minutes in the direct care of this critically ill patient, excluding procedure time. ED Disposition Clinical Impression: UTI (urinary tract infection) Qualifiers: Urinary tract infection type: acute cystitis Hematuria presence: with hematuria Qualified Code(s): N30.01 - Acute cystitis with hematuria Disposition: TO HOME OR SELFCARE Is pt being admited?: No Does the pt Need Aspirin: No Condition: Stable Instructions: Urinary Tract Infection in Women (ED) Additional Instructions: Complete antibiotics as prescribed. Increase her water intake by 2 L. You can take Tylenol or Motrin for pain management. Prescriptions: Nitrofurantoin Monohyd/M-Cryst [Macrobid 100 mg Capsule] 100 mg PO BID #14 capsule Referrals: PRIMARY CARE, [Primary Care Provider] - 3-5 Days Forms: Work/School Release Form(ED)
== END 2017-10-26 06:35 | disposition home or self-care (01) ==
LOC: ED 04:00
DX: N30.01 Acute cystitis with hematuria (principal)
CPT/HCPCS: 81001; 81025; 99283

== ENCOUNTER 2018-07-27 15:29 | Emergency (ER) | payer OTHER ==
[2018-07-27 15:55] VITALS: BP 117/76
--- NOTE | 2018-07-27 15:57 | Emergency Department Report ---
Blank Doc - Documentation Documentation: 27 y o female presents to ED cc of right foot pain x today after a metal object fell on her foot foot xray [facility] eval
--- NOTE | 2018-07-27 17:38 | XRay Report ---
PROCEDURE: XR FOOT 3+V RT TECHNIQUE: Right foot radiographs, AP, lateral, and oblique views. HISTORY: pain COMPARISONS: None . FINDINGS: There is no radiographic evidence of definite acute fracture or dislocation. No evidence of osseous lesion. Joint spaces are maintained. There is no evidence of significant degenerative arthrosis. IMPRESSION: No definite radiographically visible acute skeletal pathology This document is electronically signed by Dat Ryan MD., Jul 27 2018 05:36:12 PM ET
--- NOTE | 2018-07-27 18:01 | Emergency Department Report ---
ED Lower Extremity HPI - General Chief Complaint: Extremity Injury, Lower Stated Complaint: FOOT PAIN Time Seen by Provider: 07/27/18 15:54 Source: patient Mode of arrival: Ambulatory Limitations: No Limitations - History of Present Illness Initial Comments: heavy object fell on foot at work pain to great toe/1st metatarsal area Complaint: foot injury -: Sudden, This afternoon Injury: Foot: Right Type of Injury: blunt Place: work Severity: moderate Severity scale (0 -10): 6 Improves With: rest Worsens With: weight bearing Context: direct blow Associated Symptoms: swelling, able to partially bear weight. denies: numbness, tingling - Related Data Previous Rx's Medication Instructions Recorded Last Taken Type Acetaminophen/Codeine [Tylenol #3] 1 tab PO Q6H PRN #8 tab 07/14/16 Unknown Rx methylPREDNISolone [Medrol] 4 mg PO DAILY #1 tab.ds.pk 07/14/16 Unknown Rx Vit-Fe Fumar-FA [ 1 tab PO QDAY #30 tablet 11/15/16 Unknown Rx Vitamin] Amoxicillin/K Clav Tab [Augmentin 1 tab PO Q12HR #20 tab 09/26/17 Unknown Rx 875MG TAB] Cetirizine HCl [ZyrTEC] 10 mg PO QAM 14 Days #14 capsule 09/26/17 Unknown Rx Fluticasone [Flonase] 1 spray NS QDAY 14 Days #1 bottle 09/26/17 Unknown Rx Neomy/Polymyx B/Hc (Otic) Soln 4 drops .ROUTE Q8H 7 Days #1 bottle 09/26/17 Unknown Rx [Cortisporin (Otic) Soln] Nitrofurantoin Monohyd/M-Cryst 100 mg PO BID #14 capsule 10/26/17 Unknown Rx [Macrobid 100 mg Capsule] Ibuprofen [Motrin 600 MG tab] 600 mg PO Q8H PRN #15 tablet 07/27/18 Unknown Rx Allergies Allergy/AdvReac Type Severity Reaction Status Date / Time No Known Allergies Allergy Verified 07/27/18 15:30 ED Review of Systems ROS: Stated complaint: FOOT PAIN Other details as noted in HPI Comment: All other systems reviewed and negative Musculoskeletal: as per HPI ED Past Medical Hx - Past Medical History Previous Medical History?: No Hx Hypertension: No Hx CVA: No Hx Heart Attack/AMI: No Hx Congestive Heart Failure: No Hx Diabetes: No Hx Deep Vein Thrombosis: No Hx Pulmonary Embolism: No Hx GERD: No Hx Liver Disease: No Hx Renal Disease: No Hx Sickle Cell Disease: No Hx Arthritis: No Hx Headaches / Migraines: No Hx Seizures: No Hx Kidney Stones: No Hx Psychiatric Treatment: No Hx Asthma: No Hx COPD: No Hx Tuberculosis: No Hx Dementia: No Hx HIV: No Additional medical history: sinus problems - Surgical History Past Surgical History?: No Hx Coronary Stent: No Hx Open Heart Surgery: No Hx Pacemaker: No Hx Internal Defibrillator: No Hx Cholecystectomy: No Hx Appendectomy: No Hx Breast Surgery: No - Social History Smoking Status: Never Smoker Substance Use Type: Alcohol - Medications Home Medications: Home Medications Medication Instructions Recorded Confirmed Last Taken Type Acetaminophen/Codeine [Tylenol #3] 1 tab PO Q6H PRN #8 tab 07/14/16 Unknown Rx methylPREDNISolone [Medrol] 4 mg PO DAILY #1 tab.ds.pk 07/14/16 Unknown Rx Vit-Fe Fumar-FA [ 1 tab PO QDAY #30 tablet 11/15/16 Unknown Rx Vitamin] Amoxicillin/K Clav Tab [Augmentin 1 tab PO Q12HR #20 tab 09/26/17 Unknown Rx 875MG TAB] Cetirizine HCl [ZyrTEC] 10 mg PO QAM 14 Days #14 capsule 09/26/17 Unknown Rx Fluticasone [Flonase] 1 spray NS QDAY 14 Days #1 bottle 09/26/17 Unknown Rx Neomy/Polymyx B/Hc (Otic) Soln 4 drops .ROUTE Q8H 7 Days #1 bottle 09/26/17 Unknown Rx [Cortisporin (Otic) Soln] Nitrofurantoin Monohyd/M-Cryst 100 mg PO BID #14 capsule 10/26/17 Unknown Rx [Macrobid 100 mg Capsule] Ibuprofen [Motrin 600 MG tab] 600 mg PO Q8H PRN #15 tablet 07/27/18 Unknown Rx ED Physical Exam - General Limitations: No Limitations General appearance: alert, in no apparent distress - Head Head exam: Present: atraumatic, normocephalic - Eye Eye exam: Present: normal appearance - ENT ENT exam: Present: mucous membranes moist - Neck Neck exam: Present: normal inspection - Respiratory Respiratory exam: Present: normal lung sounds bilaterally. Absent: respiratory distress - Cardiovascular Cardiovascular Exam: Present: regular rate, normal rhythm. Absent: systolic murmur, diastolic murmur, rubs, gallop - GI/Abdominal GI/Abdominal exam: Present: soft, normal bowel sounds - Extremities Exam Extremities exam: Present: normal capillary refill, other (mild swelling to the R foot, tenderness over 1st metatarsal/great toe. CMS intact) - Back Exam Back exam: Present: normal inspection - Neurological Exam Neurological exam: Present: alert, oriented X3 - Psychiatric Psychiatric exam: Present: normal affect, normal mood - Skin Skin exam: Present: warm, dry, intact, normal color. Absent: rash ED Course Vital Signs 07/27/18 15:54 Temperature 97.9 F Pulse Rate 88 Respiratory 18 Rate Blood Pressure 117/76 [Right] O2 Sat by Pulse 97 Oximetry ED Lower Extremity MDM - Radiology Data Radiology results: report reviewed, image reviewed naf in right foot - Medical Decision Making foot pain after injury normal imaging post op shoe, podiatry f/u - Differential Diagnosis contusion, fx Critical care attestation.: If time is entered above; I have spent that time in minutes in the direct care of this critically ill patient, excluding procedure time. ED Disposition Clinical Impression: Contusion of right foot Qualifiers: Encounter type: initial encounter Qualified Code(s): S90.31XA - Contusion of right foot, initial encounter Disposition: TO HOME OR SELFCARE Is pt being admited?: No Condition: Good Instructions: Foot Contusion (ED) Prescriptions: Ibuprofen [Motrin 600 MG tab] 600 mg PO Q8H PRN #15 tablet PRN Reason: Pain [facility] [Primary Care Provider] - 3-5 Days JESSE TOBIAS DPM [Staff Physician] - 3-5 Days Time of Disposition: 18:03
== END 2018-07-27 18:22 | disposition home or self-care (01) ==
LOC: ED 15:29
DX: S90.31XA Contusion of right foot, initial encounter (principal); Z79.899 Other long term (current) drug therapy; W20.8XXA Other cause of strike by thrown, projected or falling object, initial encounter; Y93.89 Activity, other specified; Y92.69 Other specified industrial and construction area as the place of occurrence of the external cause; Y99.0 Civilian activity done for income or pay
CPT/HCPCS: 99283

== ENCOUNTER 2020-09-23 15:24 | Emergency (ER) | payer MEDICAID, OTHER ==
[2020-09-23] MEDS ORDERED: FAMOTIDINE 20 MG/2 ML INJ IV ONE (16:32)
[2020-09-23] MEDS ORDERED: dexAMETHasone 4 MG/ML VIAL IV ONE (16:32)
[2020-09-23] MEDS ORDERED: SODIUM CHLORIDE 0.9% 1000 ML 1,000 ML IV ONE (16:32)
[2020-09-23] MEDS ORDERED: diphenhydrAMINE 50 MG/ML VIAL IV ONE (16:32)
--- NOTE | 2020-09-23 17:51 | Emergency Department Report ---
ED Allergic Reaction HPI - General Chief complaint: Allergic Reaction Stated complaint: ALLERGIC REACTION ALL OVER Time Seen by Provider: 09/23/20 16:31 Source: patient Mode of arrival: Ambulatory Limitations: No Limitations - History of Present Illness Initial Comments: This is a 29-year-old female nontoxic, well nourished in appearance, no acute signs of distress presents to the ED with c/o of itching and hives diffuse that started today [employer]. Patient states it is itching and redness. Patient denies any drooling, hoarseness or facial swelling. Patient denies any trauma. She denies any fever, chills, nausea, vomiting, chest pain, shortness of breath, headache, stiff neck, numbness or tingling. Patient denies any allergies. MD Complaint: allergic reaction, hives -: This afternoon Exposure: unknown Symptoms: rash, itching. denies: facial swelling, lip swelling, difficulty swallowing, difficulty breathing, orolingual swelling, hoarseness, syncopy, dizziness, nausea, vomiting, abdominal pain Severity: mild Treatment Prior to Arrival: none Previous Allergy History: none - Related Data Previous Rx's Medication Instructions Recorded Last Taken Type Acetaminophen/Codeine [Tylenol #3] 1 tab PO Q6H PRN #8 tab 07/14/16 Unknown Rx methylPREDNISolone [Medrol] 4 mg PO DAILY #1 tab.ds.pk 07/14/16 Unknown Rx Vit-Fe Fumar-FA [ 1 tab PO QDAY #30 tablet 11/15/16 Unknown Rx Vitamin] Amoxicillin/K Clav Tab [Augmentin 1 tab PO Q12HR #20 tab 09/26/17 Unknown Rx 875MG TAB] Cetirizine HCl [ZyrTEC] 10 mg PO QAM 14 Days #14 capsule 09/26/17 Unknown Rx Fluticasone [Flonase] 1 spray NS QDAY 14 Days #1 bottle 09/26/17 Unknown Rx Neomy/Polymyx B/Hc (Otic) Soln 4 drops .ROUTE Q8H 7 Days #1 bottle 09/26/17 Unknown Rx [Cortisporin (Otic) Soln] Nitrofurantoin Monohyd/M-Cryst 100 mg PO BID #14 capsule 10/26/17 Unknown Rx [Macrobid 100 mg Capsule] Ibuprofen [Motrin 600 MG tab] 600 mg PO Q8H PRN #15 tablet 05/21/19 Unknown Rx Prednisone [predniSONE 10 mg 10 mg PO .TAPER #1 tab.ds.pk 09/23/20 Unknown Rx (6-Day Pack, 21 Tabs)] diphenhydrAMINE [Benadryl CAP] 25 mg PO Q8HR PRN #12 capsule 09/23/20 Unknown Rx Allergies Allergy/AdvReac Type Severity Reaction Status Date / Time No Known Allergies Allergy Verified 07/27/18 15:30 ED Review of Systems ROS: Stated complaint: ALLERGIC REACTION ALL OVER Other details as noted in HPI Comment: All other systems reviewed and negative Constitutional: denies: chills, fever Eyes: denies: eye pain, eye discharge, vision change ENT: denies: ear pain, throat pain Respiratory: denies: cough, shortness of breath, wheezing Cardiovascular: denies: chest pain, palpitations Endocrine: no symptoms reported Gastrointestinal: denies: abdominal pain, nausea, diarrhea Genitourinary: denies: urgency, dysuria, discharge Musculoskeletal: denies: back pain, joint swelling, arthralgia Skin: rash. denies: lesions, change in color, change in hair/nails, pruritus Neurological: denies: headache, weakness, paresthesias Psychiatric: denies: anxiety, depression Hematological/Lymphatic: denies: easy bleeding, easy bruising ED Past Medical Hx - Past Medical History Hx Hypertension: No Hx CVA: No Hx Heart Attack/AMI: No Hx Congestive Heart Failure: No Hx Diabetes: No Hx Deep Vein Thrombosis: No Hx Pulmonary Embolism: No Hx GERD: No Hx Liver Disease: No Hx Renal Disease: No Hx Sickle Cell Disease: No Hx Arthritis: No Hx Headaches / Migraines: No Hx Seizures: No Hx Kidney Stones: No Hx Psychiatric Treatment: No Hx Asthma: No Hx COPD: No Hx Tuberculosis: No Hx Dementia: No Hx HIV: No Additional medical history: sinus problems - Surgical History Hx Coronary Stent: No Hx Open Heart Surgery: No Hx Pacemaker: No Hx Internal Defibrillator: No Hx Cholecystectomy: No Hx Appendectomy: No Hx Breast Surgery: No - Social History Smoking Status: Current Every Day Smoker Substance Use Type: Alcohol, Marijuana - Medications Home Medications: Home Medications Medication Instructions Recorded Confirmed Last Taken Type Acetaminophen/Codeine [Tylenol #3] 1 tab PO Q6H PRN #8 tab 07/14/16 Unknown Rx methylPREDNISolone [Medrol] 4 mg PO DAILY #1 tab.ds.pk 07/14/16 Unknown Rx Vit-Fe Fumar-FA [ 1 tab PO QDAY #30 tablet 11/15/16 Unknown Rx Vitamin] Amoxicillin/K Clav Tab [Augmentin 1 tab PO Q12HR #20 tab 09/26/17 Unknown Rx 875MG TAB] Cetirizine HCl [ZyrTEC] 10 mg PO QAM 14 Days #14 capsule 09/26/17 Unknown Rx Fluticasone [Flonase] 1 spray NS QDAY 14 Days #1 bottle 09/26/17 Unknown Rx Neomy/Polymyx B/Hc (Otic) Soln 4 drops .ROUTE Q8H 7 Days #1 bottle 09/26/17 Unknown Rx [Cortisporin (Otic) Soln] Nitrofurantoin Monohyd/M-Cryst 100 mg PO BID #14 capsule 10/26/17 Unknown Rx [Macrobid 100 mg Capsule] Ibuprofen [Motrin 600 MG tab] 600 mg PO Q8H PRN #15 tablet 07/27/18 Unknown Rx Prednisone [predniSONE 10 mg 10 mg PO .TAPER #1 tab.ds.pk 09/23/20 Unknown Rx (6-Day Pack, 21 Tabs)] diphenhydrAMINE [Benadryl CAP] 25 mg PO Q8HR PRN #12 capsule 09/23/20 Unknown Rx ED Physical Exam - General Limitations: No Limitations General appearance: alert, in no apparent distress - Head Head exam: Present: atraumatic, normocephalic - Eye Eye exam: Present: normal appearance - ENT ENT exam: Present: normal exam, normal orophraynx, other (no angio edema. uvula midline.) - Neck Neck exam: Present: normal inspection, full ROM. Absent: lymphadenopathy - Respiratory Respiratory exam: Present: normal lung sounds bilaterally. Absent: respiratory distress, wheezes, rales, rhonchi, stridor, chest wall tenderness, accessory muscle use, decreased breath sounds, prolonged expiratory - Cardiovascular Cardiovascular Exam: Present: regular rate, normal rhythm, normal heart sounds - GI/Abdominal GI/Abdominal exam: Present: soft. Absent: distended, tenderness - Extremities Exam Extremities exam: Present: normal inspection, full ROM, normal capillary refill. Absent: tenderness - Back Exam Back exam: Present: normal inspection, full ROM. Absent: tenderness, CVA tenderness (R), CVA tenderness (L), muscle spasm, paraspinal tenderness, vertebral tenderness, rash noted - Neurological Exam Neurological exam: Present: alert, oriented X3, normal gait - Psychiatric Psychiatric exam: Present: normal affect, normal mood - Skin Skin exam: Present: warm, dry, intact, rash (diffuse to upper and lower extermitites, chest, and back), urticaria (diffuse to upper and lower extermitites, chest, and back). Absent: cyanosis, diaphoretic, erythema, vesicles, petechiae, pallor, abrasion, ecchymosis ED Course Vital Signs 09/23/20 09/23/20 16:28 18:04 Temperature 97.9 F 99.6 F Pulse Rate 120 H 90 Respiratory 22 20 Rate Blood Pressure 102/64 [Right] O2 Sat by Pulse 95 100 Oximetry - Reevaluation(s) Reevaluation #1: 09/23/20 17:52 Patient is speaking in full sentences with no signs of distress noted. ED Medical Decision Making - Medical Decision Making This is a 29-year-old female that presents with allergic reaction. Patient is stable was examined by me. There is no facial swelling. No angioedema. There is no cellulitis. No hoarseness. Patient received 1 L normal saline, Benadryl, Decadron, and Pepcid in the ED IV. Patient was instructed not to operate any machinery after discharge due to possible drowsiness of Benadryl. Patient stated that a family member will drive patient home after discharge. Patient is discharged with prednisone and Benadryl. Patient was referred to Follow-up with a primary care doctor in 3-5 days or if symptoms worsen and continue return to emergency room as soon as possible. At time of discharge, the patient does not seem toxic or ill in appearance. No acute signs of distress noted. Patient agrees to discharge treatment plan of care. No further questions noted by the patient. Critical care attestation.: If time is entered above; I have spent that time in minutes in the direct care of this critically ill patient, excluding procedure time. ED Disposition Clinical Impression: Urticarial rash Allergic reaction Qualifiers: Encounter type: initial encounter Qualified Code(s): T78.40XA - Allergy, unspecified, initial encounter Disposition: DC-01 TO HOME OR SELFCARE Is pt being admited?: No Does the pt Need Aspirin: No Condition: Stable Instructions: Hives, Diphenhydramine capsules or tablets Additional Instructions: Follow-up with a primary care doctor in 3-5 days or if symptoms worsen and continue return to emergency room as soon as possible. Prescriptions: diphenhydrAMINE [Benadryl CAP] 25 mg PO Q8HR PRN #12 capsule PRN Reason: Itching Prednisone [predniSONE 10 mg (6-Day Pack, 21 Tabs)] 10 mg PO .TAPER #1 tab.ds.pk Referrals: PRIMARY CARE, [Primary Care Provider] - 3-5 Days SOLO ONEILL MD [Staff Physician] - 3-5 Days Forms: Work/School Release Form(ED) Time of Disposition: 18:01
[2020-09-23 18:07] VITALS: BP 102/64
== END 2020-09-23 18:15 | disposition home or self-care (01) ==
LOC: ED 15:24
DX: T78.40XA Allergy, unspecified, initial encounter (principal); L50.9 Urticaria, unspecified; F17.200 Nicotine dependence, unspecified, uncomplicated; F12.90 Cannabis use, unspecified, uncomplicated; Z79.899 Other long term (current) drug therapy; X58.XXXA Exposure to other specified factors, initial encounter
CPT/HCPCS: 96361; 96374; 96375; 99283; J1100; J1200; J7030